=== PATIENT | male | born 1970 | race Caucasian/White ===

== ENCOUNTER 2024-01-17 06:00 | Outpatient (RCR) | payer OTHER, SELFPAY | END 2024-01-24 23:59 | disposition home or self-care (01) | LOC: MPT 06:00 | PROVIDERS: PCP Family Medicine; Visit Provider Internal Medicine Infectious Disease | DX: M25.552 Pain in left hip (principal) | CPT/HCPCS: 97110; 97116; 97162; 97530 ==

== ENCOUNTER 2024-01-25 06:00 | Outpatient (RCR) | payer OTHER, SELFPAY | END 2024-02-24 23:59 | disposition home or self-care (01) | LOC: MPT 06:00 | PROVIDERS: PCP Family Medicine; Visit Provider Internal Medicine Infectious Disease | DX: M25.552 Pain in left hip (principal) | CPT/HCPCS: 97110 ==

== ENCOUNTER 2024-02-02 08:50 | Outpatient (CLI) | payer BC, SELFPAY ==
--- NOTE | 2024-02-02 09:00 | CT_ITS ---
WS: [id number] LDCT LUNG CANCER SCREENING TECHNIQUE: Noncontrast CT of the chest with coronal and sagittal reformatted images. CLINICAL INFORMATION: screening lung cancer COMPARISON: None. DLP: 64.60 mGy.cm DIvol: Mean CTDIvol: 1.30 (mGy) All CT scans at use at least one of these dose optimization techniques: automat ed exposure control; mA and/or kV adjustment per patient size (includes targeted exams where dose is matched to clinical indication); or iterative reconstruction. FINDINGS: Irregular spiculated nodule in the RIGHT lower lobe abutting or involving a dilated bronchus. Suspici ous lesion measures approximately 1.3 cm. Recommend further evaluation with PET/CT Dense vascular calcification. Normal caliber thoracic aorta. Aortic calcification. Coronary calcifica tion. No mediastinal or hilar lymphadenopathy. No axillary lymphadenopathy. Small RIGHT adrenal adenoma measuring 12 mm. Normal GE junction. Mild spondylitic changes thoracic sp ine. Tiny nodule in the RIGHT middle lobe fissure. 3 mm nodule RIGHT upper lobe. CT/CT lung screening [id number] IMPRESSION: Suspicious spiculated RIGHT lower lobe lesion measures 1.3 cm. Recommend furthe r evaluation with PET/CT. LUNG-RADS: 4B-Suspicious FOLLOW UP: PET/CT recommended
== END 2024-02-02 08:51 | disposition home or self-care (01) ==
LOC: RAD 08:51
PROVIDERS: PCP Family Medicine; Visit Provider Family Medicine
DX: Z12.2 Encounter for screening for malignant neoplasm of respiratory organs (principal); F17.210 Nicotine dependence, cigarettes, uncomplicated; R91.1 Solitary pulmonary nodule
CPT/HCPCS: 71271

== ENCOUNTER 2024-02-11 09:30 | Outpatient (CLI) | payer BC, SELFPAY ==
--- NOTE | 2024-02-11 10:00 | PETR_ITS ---
PROCEDURE INFORMATION: Exam: PET/CT Skull Base to Mid-thigh Exam date and time: 02/11/2024 10:51 AM Age: 53 years old Clinical indication: Abnormal findings; Rll 1.3cm spiculated mass; Additional info: Ldct shows rll 1.3cm spiculated mass LABS AND CLINICAL REPORTS: Glucose: 103 mg/dl Treatment strategy for malignancy (PET staging): Initial Staging (PI) TECHNIQUE: Imaging protocol: Following at least four-hour fasting and following the injection of radiopharmaceutical, low dose CT images were obtained. Then, PET images were obtained. Attenuation corrected images were constructed using the CT scan. Fused images of PET and CT were reviewed. The standardized uptake values (SUV) reported below are maximum values within a region of interest, expressed in gm/ml. Exam includes orbital meatal line to mid-thigh. Radiopharmaceutical: 10.99 mCi F-18 FDG (Fluorodeoxyglucose), IV. Time of imaging post radiopharmaceutical administration: 49 minutes Injection site: [facility] COMPARISON: CT lung screening [id number] 02/02/2024 9:03 AM FINDINGS: Brain: Visualized brain has normal physiologic uptake. Pharynx: No abnormal uptake. Larynx: No abnormal uptake. Lungs, pleura and trachea: Mild upper lung predominant emphysematous change. Irregular right lower lobe nodule measures 1.5 x 1.0 cm on axial image 250 of series 202 and shows low-level FDG uptake with SUV max of 1.5. Heart: Normal physiologic uptake. Coronary arteries: Mild coronary artery calcification. Mediastinal space: No abnormal uptake. Liver: No abnormal uptake. Gallbladder and biliary ducts: No abnormal uptake. Pancreas: No abnormal uptake. Spleen: No abnormal uptake. Adrenal glands: No abnormal uptake. 1.5 cm non FDG avid hypodense right adrenal nodule compatible with adenoma. Kidneys and ureters: Normal physiologic uptake. Nonobstructive left lower renal stone. Stomach and bowel: No abnormal uptake. Colonic diverticulosis without findings of diverticulitis. Vasculature: No abnormal uptake. Heavy systemic atherosclerotic calcification without aortic aneurysm. Lymph nodes: No abnormal uptake. No lymphadenopathy in the head, neck, chest, abdomen, pelvis, and extremities. Skeleton: C6-C7 disc replacement. Left femur intertrochanteric fracture deformity with proximal femur intramedullary nail and screw fixation and moderate surrounding FDG uptake. Soft tissues: No abnormal uptake in the visualized head, neck, chest, abdomen, pelvis, and extremities. Tiny fat containing umbilical hernia. PET/PET skull to thigh INIT [id number] IMPRESSION: 1. 1.5 x 1.0 cm right lower lobe nodule with low-level FDG uptake favoring benignity. Recommend continued follow-up chest CT. 2. Left femur intertrochanteric fracture deformity with proximal femur intramedullary nail and screw fixation with moderate surrounding FDG uptake that is likely inflammatory/posttraumatic. 3. Additional chronic and incidental findings as above, to include atherosclerosis, nonobstructive left nephrolithiasis, colonic diverticulosis, and right adrenal adenoma.
== END 2024-02-11 09:31 | disposition home or self-care (01) ==
PROVIDERS: PCP Family Medicine; Visit Provider Family Medicine
DX: R91.1 Solitary pulmonary nodule (principal); D35.01 Benign neoplasm of right adrenal gland; K57.90 Diverticulosis of intestine, part unspecified, without perforation or abscess without bleeding; I70.0 Atherosclerosis of aorta; N20.0 Calculus of kidney; Z96.7 Presence of other bone and tendon implants
CPT/HCPCS: 78815; A9552

== ENCOUNTER 2024-02-25 06:00 | Outpatient (RCR) | payer OTHER, SELFPAY | END 2024-03-25 23:59 | disposition home or self-care (01) | LOC: MPT 06:00 | PROVIDERS: PCP Family Medicine; Visit Provider Internal Medicine Infectious Disease | DX: M25.552 Pain in left hip (principal) | CPT/HCPCS: 97110; 97116; 97530 ==

== ENCOUNTER 2024-03-26 06:00 | Outpatient (RCR) | payer OTHER, SELFPAY | END 2024-04-25 23:59 | disposition home or self-care (01) | LOC: MPT 06:00 | PROVIDERS: PCP Family Medicine; Visit Provider Internal Medicine Infectious Disease | DX: M25.552 Pain in left hip (principal) | CPT/HCPCS: 97110 ==

== ENCOUNTER 2024-04-05 16:37 | Outpatient (CLI) | payer BC, SELFPAY ==
--- NOTE | 2024-04-05 16:45 | CT_ITS ---
WS: [id number] CT chest wo con [id number] HISTORY: f/u RLL nodule TECHNIQUE: Axial imaging performed through the thorax. Coronal and sagittal reformats are submitted. All CT scans at [facility] use at least one of these dose optimization techniques: automated exposure control; mA and/or kV adjustment per patient size (includes targeted exams where dose is mat ched to clinical indication); or iterative reconstruction. CONTRAST: None DLP: 352.57 mGy.cm COMPARISON: 02/02/2024, PET/CT 02/11/2024 Lungs and central airway: Spiculated nodule superior segment RIGHT lower lobe is reidentified measuri ng 7 x 15 x 12 mm. A similar in appearance to the prior examination of 02/02/2024. Nodule may have sli ghtly decreased in size overall. This nodule was evaluated by PET/CT with favored benignity. Mild pul monary emphysema. No additional mass or nodule. No pneumonia. Pleura: Normal. No pleural effusion. Heart and pericardium: Normal size heart with no pericardial effusion. Mediastinum and [place]: No adenopathy of any concern by size criteria seen on this unenhanced exam. Vessels: Moderate atherosclerotic plaque within the a sending aorta. Pulmonary artery size is normal. Chest wall and lower neck: Very superficial soft tissue nodule in the anterior RIGHT mid chest wall m easures 6 mm. Probably a sebaceous cyst. No additional soft tissue mass or nodule. Upper abdomen: Mild LEFT adrenal hyperplasia. RIGHT adrenal 11 mm adenoma. Osseous structures: No destructive process. CT/CT chest wo con [id number] IMPRESSION: 1. No increase in size of the spiculated nodule in the RIGHT lower lobe measur ing 7 x 15 x 12 mm. This nodule was also evaluated by PET/CT and demonstrates l ow-level FDG uptake. Recommend continued serial evaluation by chest CT. Chest C T reevaluation in 3 to 6 months. 2. Chronic emphysema. 3. RIGHT adrenal adenoma and mild LEFT adrenal hyperplasia.
== END 2024-04-05 16:38 | disposition home or self-care (01) ==
PROVIDERS: PCP Family Medicine; Visit Provider Family Medicine
DX: R91.1 Solitary pulmonary nodule (principal); J43.9 Emphysema, unspecified; D35.01 Benign neoplasm of right adrenal gland; I70.0 Atherosclerosis of aorta; R22.2 Localized swelling, mass and lump, trunk
CPT/HCPCS: 71250

== ENCOUNTER → 2024-04-11 10:53 | Outpatient (BNVA) | payer BC, SELFPAY | PROVIDERS: PCP Family Medicine; Visit Provider Family Medicine | DX: R74.8 Abnormal levels of other serum enzymes (principal); D51.9 Vitamin B12 deficiency anemia, unspecified; D62 Acute posthemorrhagic anemia; I10 Essential (primary) hypertension; M79.605 Pain in left leg | CPT/HCPCS: 82607; 82977; 83615; 84450; 84460; 85025 ==

== ENCOUNTER 2024-04-26 06:00 | Outpatient (RCR) | payer OTHER, SELFPAY | END 2024-05-26 23:59 | disposition home or self-care (01) | LOC: MPT 06:00 | PROVIDERS: PCP Family Medicine; Visit Provider Internal Medicine Infectious Disease | DX: M25.552 Pain in left hip (principal) | CPT/HCPCS: 97110; 97112; 97140 ==

== ENCOUNTER 2024-05-27 06:00 | Outpatient (RCR) | payer OTHER, SELFPAY | END 2024-06-23 23:59 | disposition home or self-care (01) | LOC: MPT 06:00 | PROVIDERS: PCP Family Medicine; Visit Provider Internal Medicine Infectious Disease | DX: M25.552 Pain in left hip (principal) | CPT/HCPCS: 97110; 97140 ==

== ENCOUNTER 2024-06-24 06:00 | Outpatient (RCR) | payer OTHER, SELFPAY | END 2024-07-24 23:59 | disposition home or self-care (01) | LOC: MPT 06:00 | PROVIDERS: PCP Family Medicine; Visit Provider Internal Medicine Infectious Disease | DX: M25.552 Pain in left hip (principal) | CPT/HCPCS: 97110; 97112 ==

== ENCOUNTER 2024-07-17 08:19 | Outpatient (CLI) | payer BC, SELFPAY ==
--- NOTE | 2024-07-17 08:30 | CTR_ITS ---
PROCEDURE INFORMATION: Exam: CT Chest Without Contrast; Diagnostic Exam date and time: 07/17/2024 8:42 AM Age: 54 years old Clinical indication: Abnormal findings; Abnormal radiologic exam of lung or chest; Additional info: 3 month f/u spiculated lung mass; Pet fav benign TECHNIQUE: Imaging protocol: Diagnostic computed tomography of the chest without contrast. Radiation optimization: All CT scans at this facility use at least one of these dose optimization techniques: automated exposure control; mA and/or kV adjustment per patient size (includes targeted exams where dose is matched to clinical indication); or iterative reconstruction. COMPARISON: CT chest con [id number] 04/05/2024 4:49 PM RADIATION DOSE METRICS: Total DLP (mGy-cm): 407.97 FINDINGS: Lungs: Unchanged appearance of a focal nodular/curvilinear of probable scarring measuring up to 1.4 cm right lower lobe. Pleural spaces: Unremarkable. No pneumothorax. No pleural effusion. Heart: Mild coronary artery calcifications present. No cardiomegaly. No pericardial effusion. Lymph nodes: Unremarkable. No enlarged lymph nodes. Vasculature: Unremarkable. No aortic aneurysm. Bones/joints: Unremarkable. No acute fracture. Soft tissues: Unremarkable. CT/CT chest wo con [id number] IMPRESSION: Unchanged appearance of a focal nodular/curvilinear lesion in the right lower lung which given stability and lack of FDG avidity on PET-CT most likely reflects localized scarring.
== END 2024-07-17 08:20 | disposition home or self-care (01) ==
PROVIDERS: PCP Family Medicine; Visit Provider Family Medicine
DX: R91.8 Other nonspecific abnormal finding of lung field (principal); I25.10 Atherosclerotic heart disease of native coronary artery without angina pectoris
CPT/HCPCS: 71250

== ENCOUNTER 2024-07-25 06:00 | Outpatient (RCR) | payer OTHER, SELFPAY | END 2024-08-23 23:59 | disposition home or self-care (01) | LOC: MPT 06:00 | PROVIDERS: PCP Family Medicine; Visit Provider Internal Medicine Infectious Disease | DX: M25.552 Pain in left hip (principal) | CPT/HCPCS: 97110; 97112; 97140 ==

== ENCOUNTER 2024-08-24 05:00 | Outpatient (RCR) | payer BC, SELFPAY | END 2024-09-23 23:59 | disposition home or self-care (01) | LOC: MPT 05:00 | PROVIDERS: PCP Family Medicine; Visit Provider Internal Medicine Infectious Disease | DX: M25.552 Pain in left hip (principal) | CPT/HCPCS: 97110; 97112; 97140 ==

== ENCOUNTER 2024-10-24 05:00 | Outpatient (RCR) | payer OTHER, SELFPAY | END 2024-11-23 23:59 | disposition home or self-care (01) | LOC: MPT 05:00 | PROVIDERS: Visit Provider Orthopaedic Surgery | DX: Z47.89 Encounter for other orthopedic aftercare (principal) | CPT/HCPCS: 97110; 97162 ==

== ENCOUNTER 2024-11-24 05:00 | Outpatient (RCR) | payer OTHER, SELFPAY | END 2024-12-24 23:59 | disposition home or self-care (01) | LOC: MPT 05:00 | PROVIDERS: PCP Family Medicine; Visit Provider Orthopaedic Surgery | DX: Z47.89 Encounter for other orthopedic aftercare (principal) | CPT/HCPCS: 97110; 97112; 97140 ==

== ENCOUNTER 2024-12-25 05:00 | Outpatient (RCR) | payer BC, SELFPAY | END 2025-01-23 23:59 | disposition home or self-care (01) | LOC: MPT 05:00 | PROVIDERS: PCP Family Medicine; Visit Provider Orthopaedic Surgery | DX: S72.002D Fracture of unspecified part of neck of left femur, subsequent encounter for closed fracture with routine healing (principal); X58.XXXD Exposure to other specified factors, subsequent encounter | CPT/HCPCS: 97110; 97112; 97140; 97530 ==

== ENCOUNTER 2025-01-17 11:48 | Outpatient (CLI) | payer BC, SELFPAY ==
--- NOTE | 2025-01-17 12:00 | CT_ITS ---
WS: [id number] CT chest wo con [id number] HISTORY: 6 month f/u TECHNIQUE: Axial imaging performed through the thorax. Coronal and sagittal reformats are submitted. All CT scans at [facility] use at least one of these dose optimization techniques: automated exposure control; mA and/or kV adjustment per patient size (includes targeted exams where dose is matched to clinical indication); or iterative reconstruction. CONTRAST: None DLP: 371.04 mGy.cm COMPARISON: 07/17/2024, 04/05/2024, 02/02/2024, PET/CT 02/11/2024 Lungs and central airway: Pulmonary hyperexpansion is mild. Reidentified is a subsolid nodule superior RIGHT lower lobe measuring 10 x 8 x 11 mm. This nodule has been previously described and stable since 02/02/2024 and likely benign by PET/CT imaging. No new or additional nodule. Pleura: Normal. No pleural effusion. Heart and pericardium: Normal size heart with no pericardial effusion. Mediastinum and [place]: No mediastinum or hilar adenopathy. Vessels: Dense calcification in the thoracic aorta. Normal size aorta and pulmonary artery. Chest wall and lower neck: No soft tissue masses. Upper abdomen: Mild gastric wall thickening is similar to the prior studies. Stable well-circumscribed RIGHT adrenal adenoma measuring 12 mm. Osseous structures: Prior healed rib fracture mid LEFT thorax. CT/CT chest wo con [id number] IMPRESSION: 1. Stable area of scarring and nodularity RIGHT lower lobe measures 10 x 8 x 1 1 mm. Also likely benign on PET/CT imaging. This is probably an area of scarrin g. Recommend additional 12-month noncontrast chest CT follow-up to demonstrate long-term stability. 2. No mediastinal or hilar adenopathy. 3. Dense calcification thoracic aorta. 4. Stable RIGHT adrenal adenoma, 12 mm.
== END 2025-01-17 11:49 | disposition home or self-care (01) ==
LOC: RAD 11:53
PROVIDERS: PCP Family Medicine; Visit Provider Family Medicine
DX: R91.8 Other nonspecific abnormal finding of lung field (principal); R91.1 Solitary pulmonary nodule; D35.01 Benign neoplasm of right adrenal gland
CPT/HCPCS: 71250

== ENCOUNTER 2025-02-20 13:00 | Outpatient (RCR) | payer BC, SELFPAY | END 2025-02-23 23:59 | disposition home or self-care (01) | LOC: MPT 13:00 | PROVIDERS: PCP Family Medicine; Visit Provider Orthopaedic Surgery | DX: Z47.89 Encounter for other orthopedic aftercare (principal); M25.552 Pain in left hip | CPT/HCPCS: 97110; 97112; 97140; 97530 ==